=== PATIENT | male | born 1990 | race Two or more races ===

== ENCOUNTER 2017-07-07 14:39 | Emergency (ER) | payer SELFPAY ==
[~2017-07-07] VITALS: Ht 188 cm; Wt 72.6 kg
[2017-07-07 14:50] VITALS: BP 185/82
[2017-07-07] MEDS ORDERED: LIDOCAINE 2%/EPI 1:100,000 20 ML VIAL. IJ ONE (15:15)
[2017-07-07] MEDS ORDERED: LIDOCAINE 2% 20 ML VIAL. ONE (15:15)
[2017-07-07] MEDS ORDERED: SULF1TAB24 PO (15:30)
[2017-07-07] MEDS ORDERED: LIDOCAINE 2% 20 ML VIAL. IJ ONE (15:30)
--- NOTE | 2017-07-07 15:31 | PHYS DOC ---
Past Medical History Past Medical History: No Pertinent History Past Surgical History: No Surgical History Alcohol Use: Occasionally Drug Use: Marijuana Adult General Chief Complaint Chief Complaint: ABSCESS HPI HPI Patient is a 26 year old male presents to the ED complaining of abscess to neck x 3 days. States he shaved the back of his neck and hair line. He felt a pimple on the back of his neck and tried to pop it. States it has just gotten bigger and more red. Denies fever, neck pain, injury, n/v, dizziness, weakness or headache. Review of Systems Review of Systems Constitutional: Denies fever or chills [] Eyes: Denies change in visual acuity, redness, or eye pain [] HENT: Denies nasal congestion or sore throat [] Respiratory: Denies cough or shortness of breath [] Cardiovascular: No additional information not addressed in HPI [] GI: Denies abdominal pain, nausea, vomiting, bloody stools or diarrhea [] : Denies dysuria or hematuria [] Musculoskeletal: Denies back pain or joint pain [] Integument: Denies rash or skin lesions [] Neurologic: Denies headache, focal weakness or sensory changes [] Endocrine: Denies polyuria or polydipsia [] All other systems were reviewed and found to be within normal limits, except as documented in this note. Current Medications Current Medications Current Medications Medications (Trade) Dose Ordered Sig/Andreas Start Time Stop Time Status Last Admin Dose Admin Lidocaine HCl 20 ml 1X ONCE 07/07/17 15:30 07/07/17 15:31 DC Lidocaine/ Epinephrine (Xylocaine 2%-Epi 1:100,000) 20 ml 1X ONCE 07/07/17 15:15 07/07/17 15:20 DC Allergies Allergies Allergies Coded Allergies Type Severity Reaction Last Updated Verified No Known Drug Allergies 07/07/17 No Physical Exam Physical Exam Constitutional: Well developed, well nourished, no acute distress, non-toxic appearance. [] HENT: Normocephalic, atraumatic, oropharynx moist Neck: 2x1 CM ABSCESS TO RIGHT UPPER NECK. Normal range of motion, no tenderness , supple, no stridor. [] Skin: Warm, dry, no erythema, no rash. [] Neurologic: Alert and oriented X 3, normal motor function, normal sensory function, no focal deficits noted. [] Psychologic: Affect normal, judgement normal, mood normal. [] Current Patient Data Vital Signs Vital Signs Date Time Temp Pulse Resp B/P (MAP) Pulse Ox O2 Delivery O2 Flow Rate FiO2 07/07/17 14:50 98.6 64 20 185/82 (116) 98 Room Air 98.6 EKG EKG [] Radiology/Procedures Radiology/Procedures [] Course & Med Decision Making Course & Med Decision Making Pertinent Labs and Imaging studies reviewed. (See chart for details) []Abscess incision and drainage completed. No complications. Tetanus up-to- date. Will discharge with Bactrim. Discussed follow-up for wound re-evaluation in 3 days.Provided contact information/education. Discussed reasons to return to the ED. Patient understands and agrees with plan.` Dragon Disclaimer Dragon Disclaimer This electronic medical record was generated, in whole or in part, using a voice recognition dictation system. Departure Departure Impression: Primary Impression: Abscess Disposition: 01 HOME, SELF-CARE Condition: IMPROVED Referrals: LEONORA BYERS MD Patient Instructions: Abscess Scripts Sulfamethoxazole/Trimethoprim (BACTRIM DS TABLET) 1 Each Tablet 1 TAB PO BID, #14 TAB Prov: STANLEY CAROLINA 07/07/17 Incision and Drainage Incision and Drainage : Blade Size: 11 I & D Procedure: betadine prep, sterile drapes applied, sterile dressing applied, gauze wick placed Progress Patient tolerated well. No complications. STANLEY CAROLINA Jul 07, 2017 15:31
== END 2017-07-07 15:38 | disposition home or self-care (01) ==
LOC: ER 14:39
DX: L02.11 Cutaneous abscess of neck (principal); F12.10 Cannabis abuse, uncomplicated
CPT/HCPCS: 10060; 99283-25

== ENCOUNTER 2017-08-01 13:04 | Emergency (ER) | payer SELFPAY | END 2017-08-01 14:25 | disposition home or self-care (01) | LOC: ER 13:04 | DX: L03.811 Cellulitis of head [any part, except face] (principal); F12.10 Cannabis abuse, uncomplicated | CPT/HCPCS: 99283 ==